=== PATIENT | male | born 1980 | race American Indian/Alaskan Native ===

== ENCOUNTER 2019-04-08 10:40 | Emergency (ER) | payer SELFPAY ==
[2019-04-08 11:02] VITALS: BP 130/75
--- NOTE | 2019-04-08 11:30 | Emergency Department Report ---
- General Chief Complaint: Upper Respiratory Infection Stated Complaint: CHEST PAIN/COLD SX Time Seen by Provider: 04/08/19 11:25 Source: patient Mode of arrival: Ambulatory Limitations: No Limitations - History of Present Illness Initial Comments: Patient is 38 years old male with history of asthma. Patient presented to the ER complaining of cough, productive with greenish sputum and tinged blood for the last 1 week. Patient denied any fever or chills. Patient stated that he has been using his albuterol but is not helping with the cough. Patient denied any chest pain or shortness of breath, nausea or vomiting. MD Complaint: cough -: week(s) Severity: moderate Context: sick contacts - Related Data Allergies Allergy/AdvReac Type Severity Reaction Status Date / Time No Known Allergies Allergy Unverified 04/08/19 11:03 ED Review of Systems ROS: Stated complaint: CHEST PAIN/COLD SX Other details as noted in HPI Comment: All other systems reviewed and negative Constitutional: denies: chills, fever Respiratory: cough. denies: orthopnea, shortness of breath, SOB with exertion, SOB at rest, wheezing Cardiovascular: denies: chest pain, palpitations Gastrointestinal: denies: abdominal pain, nausea Neurological: denies: headache, weakness, paresthesias ED Past Medical Hx - Past Medical History Previous Medical History?: Yes Hx Asthma: Yes - Surgical History Past Surgical History?: No - Social History Smoking Status: Current Every Day Smoker Substance Use Type: None ED Physical Exam - General Limitations: No Limitations General appearance: alert, in no apparent distress - Head Head exam: Present: atraumatic, normocephalic, normal inspection - Eye Eye exam: Present: normal appearance - ENT ENT exam: Present: normal exam, normal orophraynx, mucous membranes moist - Neck Neck exam: Present: normal inspection, full ROM. Absent: tenderness, meningismus, lymphadenopathy, thyromegaly - Respiratory Respiratory exam: Present: normal lung sounds bilaterally - Cardiovascular Cardiovascular Exam: Present: regular rate, normal rhythm, normal heart sounds - GI/Abdominal GI/Abdominal exam: Present: soft, normal bowel sounds. Absent: distended, tenderness, guarding, rebound, rigid - Extremities Exam Extremities exam: Present: normal inspection, full ROM - Neurological Exam Neurological exam: Present: alert, oriented X3, CN II-XII intact - Psychiatric Psychiatric exam: Present: normal mood - Skin Skin exam: Present: warm, intact ED Course Vital Signs 04/08/19 11:00 Temperature 98.5 F Pulse Rate 85 Respiratory 20 Rate Blood Pressure 130/75 O2 Sat by Pulse 99 Oximetry ED Medical Decision Making - Radiology Data Radiology results: image reviewed - Medical Decision Making Patient is 38 years old male with history of asthma. Patient presented to the ER complaining of cough, productive with greenish sputum and tinged blood for the last 1 week. Patient denied any fever or chills. Patient stated that he has been using his albuterol but is not helping with the cough. Patient denied any chest pain or shortness of breath, nausea or vomiting. Chest x-ray is unremarkable. Patient symptoms consistent with acute bronchitis. Patient given amoxicillin and Robitussin for cough and advised to follow-up with his primary care physician in the next 2-3 days and to attend to the ER if symptoms are not improved. Critical care attestation.: If time is entered above; I have spent that time in minutes in the direct care of this critically ill patient, excluding procedure time. ED Disposition Clinical Impression: Acute bronchitis Disposition: DC-01 TO HOME OR SELFCARE Is pt being admited?: No Condition: Stable Instructions: Acute Bronchitis (ED) Referrals: [facility] [Provider Group] - 3-5 Days
--- NOTE | 2019-04-08 13:04 | XRay Report ---
CHEST 2 VIEWS INDICATION: C/O PRODUCTIVE COUGH WITH HEMOPTYSIS. COMPARISON: None. FINDINGS: Support devices: None. Heart: Within normal limits. Pulmonary vasculature: Normal. Lungs/pleura: No acute air space or interstitial disease. No pneumothorax. Additional findings: None. IMPRESSION: Normal chest. Signer Name: Ryne Wesley MD Signed: 04/08/2019 1:00 PM Workstation Name: [id number]
== END 2019-04-08 12:34 | disposition home or self-care (01) ==
LOC: ED 10:40
DX: J20.9 Acute bronchitis, unspecified (principal); F17.200 Nicotine dependence, unspecified, uncomplicated
CPT/HCPCS: 71046; 93005; 93010

== ENCOUNTER 2019-04-13 05:03 | Emergency (ER) | payer SELFPAY ==
[2019-04-13] MEDS ORDERED: DEXAMETHASONE 4 MG TAB PO ONE (05:18)
[2019-04-13] MEDS ORDERED: IPRATROPIUM/ALBUTEROL SULFATE 3 ML AMPUL.NEB IH ONE (05:18)
--- NOTE | 2019-04-13 05:20 | Emergency Department Report ---
ED Asthma HPI - General Chief Complaint: Dyspnea/Respdistress Stated Complaint: CAROLYN Time Seen by Provider: 04/13/19 05:18 Source: patient Mode of arrival: Ambulatory Limitations: No Limitations - History of Present Illness Initial Comments: 38-year-old -[place] male patient complains of wheezing 2 days. He states history of asthma that has been exacerbated by having bronchitis last week. Patient was seen here in ED 04/08/2019 for cough and prescribed amoxicillin. He states his symptoms resolved but easing continues. Patient did have a chest x-ray at that time that was negative for pneumonia. He denies any fever, cough, hemoptysis, chills, or use any other symptoms of infection. He states this feels like his normal asthma. Patient states he ran out of his albuterol inhaler one week ago. Complaint: wheezing -: Gradual, days(s) Context: recent URI, ran out of meds Associated Symptoms: none - Related Data Current Asthma Therapy: inhaled bronchodilator Previous Rx's Medication Instructions Recorded Last Taken Type Amoxicillin [Amoxicillin TAB] 875 mg PO BID #14 tablet 04/08/19 Unknown Rx guaiFENesin [Robitussin] 10 ml PO TID PRN #100 ml 04/08/19 Unknown Rx Albuterol Sulfate [Proventil Hfa] 6.7 gm IH Q4H PRN #1 hfa.aer.ad 04/13/19 Unknown Rx RX: predniSONE [Deltasone] 20 mg PO TID 3 Days #6 tab 04/13/19 Unknown Rx Allergies Allergy/AdvReac Type Severity Reaction Status Date / Time No Known Allergies Allergy Unverified 04/08/19 11:03 ED Review of Systems ROS: Stated complaint: CAROLYN Other details as noted in HPI Comment: All other systems reviewed and negative Constitutional: no symptoms reported Respiratory: wheezing. denies: cough, orthopnea, shortness of breath, SOB with exertion Cardiovascular: denies: chest pain ED Past Medical Hx - Past Medical History Previous Medical History?: Yes Hx Asthma: Yes - Surgical History Past Surgical History?: No - Social History Smoking Status: Never Smoker Substance Use Type: None - Medications Home Medications: Home Medications Medication Instructions Recorded Confirmed Last Taken Type Amoxicillin [Amoxicillin TAB] 875 mg PO BID #14 tablet 04/08/19 Unknown Rx guaiFENesin [Robitussin] 10 ml PO TID PRN #100 ml 04/08/19 Unknown Rx Albuterol Sulfate [Proventil Hfa] 6.7 gm IH Q4H PRN #1 hfa.aer.ad 04/13/19 Unknown Rx RX: predniSONE [Deltasone] 20 mg PO TID 3 Days #6 tab 04/13/19 Unknown Rx ED Physical Exam - General Limitations: No Limitations General appearance: alert, in no apparent distress - Head Head exam: Present: atraumatic, normocephalic - Eye Eye exam: Present: normal appearance - ENT ENT exam: Present: normal orophraynx, mucous membranes moist - Neck Neck exam: Present: normal inspection - Respiratory Respiratory exam: Present: wheezes. Absent: respiratory distress, rales, rhonchi, stridor, chest wall tenderness, accessory muscle use, decreased breath sounds - Cardiovascular Cardiovascular Exam: Present: regular rate, normal rhythm. Absent: systolic murmur, diastolic murmur, rubs, gallop - Neurological Exam Neurological exam: Present: alert, oriented X3 - Psychiatric Psychiatric exam: Present: normal affect, normal mood - Skin Skin exam: Present: warm, dry, intact, normal color. Absent: rash ED Course Vital Signs 04/13/19 05:07 Temperature 97.8 F Pulse Rate 89 Respiratory 18 Rate Blood Pressure 131/79 O2 Sat by Pulse 95 Oximetry ED Medical Decision Making - Medical Decision Making Patient is here for wheezing for the past couple of days. He has history of asthma and ran out of his albuterol inhaler. Patient is requesting a nebulizer treatment. He was recently treated here in ED for bronchitis and given antibiotics for home. Vitals are WNL. Patient given DuoNeb treatment and steroids. Patient states breathing now resolved and denies any further complaints. Wheezing has resolved on repeat exam. Patient's albuterol will be refilled and he will also be sent home with a few days of steroids. Recommend follow-up primary care. Strict return precautions were discussed in detail with patient who states understanding. Critical care attestation.: If time is entered above; I have spent that time in minutes in the direct care of this critically ill patient, excluding procedure time. ED Disposition Clinical Impression: Asthma exacerbation Qualifiers: Asthma severity: mild Asthma persistence: intermittent Qualified Code(s): J45.21 - Mild intermittent asthma with (acute) exacerbation Disposition: DC-01 TO HOME OR SELFCARE Is pt being admited?: No Condition: Stable Instructions: Asthma (ED) Prescriptions: RX: predniSONE [Deltasone] 20 mg PO TID 3 Days #6 tab Albuterol Sulfate [Proventil Hfa] 6.7 gm IH Q4H PRN #1 hfa.aer.ad PRN Reason: Wheezing Referrals: [facility] [Provider Group] - 3-5 Days
[2019-04-13 06:27] VITALS: BP 134/80
== END 2019-04-13 05:50 | disposition home or self-care (01) ==
LOC: ED 05:03
DX: J45.901 Unspecified asthma with (acute) exacerbation (principal); Z79.899 Other long term (current) drug therapy
CPT/HCPCS: 94640; 99283; J8540